=== PATIENT | female | born 1980 | race Caucasian/White ===

== ENCOUNTER 2018-07-03 16:37 | Emergency (ER) | payer OTHER ==
--- NOTE | 2018-07-03 18:11 | EDPHY ---
H & P Time Seen by Provider: 07/03/18 17:39 HPI/ROS: HPI 6 weeks . Vaginal bleeding and cramping. 37-year-old female, , by private vehicle, complains of spotting and lower abdominal cramping since 3:00 p.m. This afternoon. States that she is currently 6 weeks . Denies any other complaints. She states that her bleeding and cramping have now resolved that she is in the emergency department. States that she has not been passing clots. She denies any urinary complaints. ROS: Constitutional: No fever, no chills. No weakness. Eyes: No discharge. No changes in vision. ENT: No sore throat. No nasal congestion or rhinorrhea. Respiratory: No cough. No shortness of breath. Cardiac: No chest pain, no palpitations. Gastrointestinal: No abdominal pain, no vomiting, no diarrhea. Genitourinary: No hematuria. No dysuria or increased frequency with urination. As above. Musculoskeletal: No back pain. No neck pain. No myalgias or arthralgias. Skin: No rashes. Neurological: No headache. No focal weakness or altered sensation. Past medical history: No significant past medical history. Her OBGYN is Dr. Shania Jon. Social history: Nonsmoker. Here with boyfriend. No alcohol. Physical Exam: General Appearance: Alert, no distress. This patient is responding to questions appropriately and in full sentences. This patient appears well- hydrated and well-nourished. Eyes: Pupils equal and round no pallor or injection. No lid edema, erythema or injection. Respiratory: There are no retractions, lungs are clear to auscultation with good air movement bilaterally. Cardiovascular: Regular rate and rhythm. No murmur. Gastrointestinal: Abdomen is soft and nontender, no masses, bowel sounds normal. No focal tenderness at McBurney's point. No Cisneros sign. Neurological: Motor sensory function is grossly intact. Cranial nerves are normal. Gait is normal. Skin: Warm and dry, no rashes. Musculoskeletal: No CVA tenderness on palpation. Extremities are symmetrical. All joints range without pain or impingement. Psychiatric: No agitation. No depression. Database: EKG: Imaging: Pelvic/obstetrical ultrasound: Significant for a 6 week 4 day IUP. She has a very small subchorionic hemorrhage noted. heart rate 124. Ultrasound otherwise unremarkable. Results were discussed with staff radiologist Dr. Дмитрий Cameron. Procedures: Emergency department course: Triage vital signs reviewed. Vital signs are unremarkable. IV was placed. Blood work and Ultrasound to be obtained. 7:00 p.m., the patient was re-evaluated. She is resting comfortably at this time. Repeat abdominal exam she is soft, nontender nondistended. She has not had any further cramping or bleeding. Results of her ultrasound and emergency department workup reviewed with her and her . She feels comfortable going home at this time. I discussed diagnosis of threatened miscarriage. Follow up with her OBGYN, Dr. Shania Jon was discussed with them. Return to emergency department precautions thoroughly reviewed. All of their questions were answered. The patient was discharged home in good condition with her . Differential Diagnosis: The differential diagnosis on this patient includes but is not limited to threatened miscarriage. Ectopic unlikely. This represents a partial list of diagnoses considered. These considerations are based on history, physical exam, past history, reassessment and diagnostic testing. Smoking Status: Never smoked Constitutional: Initial Vital Signs Temperature (C) 37.1 C 07/03/18 16:56 Heart Rate 74 07/03/18 16:56 Respiratory Rate 17 07/03/18 16:56 Blood Pressure 133/87 H 07/03/18 16:56 O2 Sat (%) 97 07/03/18 16:56 O2 Delivery Mode Room Air Allergies/Adverse Reactions: No Known Allergies Allergy (Unverified 07/03/18 16:55) Home Medications: Medication Instructions Recorded Progesterone 07/03/18 Medical Decision Making - Diagnostics Imaging Results: Imaging Impressions Obstetrics Ultrasound 07/03/18 17:40 Impression: 1. 6 week 4 day intrauterine gestation ([facility] February [birth year] 2019). Sliver of subchorionic hemorrhage at the fundus. Results called to Dr. Stephens at 6:45 PM. - Data Points Laboratory Results: Laboratory Results 07/03/18 17:48 07/03/18 17:48 07/03/18 07/03/18 07/03/18 18:09 17:48 17:48 WBC RBC Hgb Hct MCV MCH MCHC RDW Plt Count MPV Neut % (Auto) Lymph % (Auto) [place] % (Auto) Eos % (Auto) Baso % (Auto) Nucleat RBC Rel Count Absolute Neuts (auto) Absolute Lymphs (auto) Absolute Monos (auto) Absolute Eos (auto) Absolute Basos (auto) Absolute Nucleated RBC Immature Gran % Immature Gran # Sodium 137 mEq/L mEq/L (135-145) Potassium 4.1 mEq/L mEq/L (3.3-5.0) Chloride 103 mEq/L mEq/L (97-110) Carbon Dioxide 21 mEq/l L mEq/l (22-31) Anion Gap 13 mEq/L mEq/L (6-14) BUN 11 mg/dL mg/dL (7-23) Creatinine 0.7 mg/dL mg/dL (0.6-1.0) Estimated GFR > 60 Glucose 96 mg/dL mg/dL (70-100) Calcium 9.7 mg/dL mg/dL (8.5-10.4) Beta HCG, Quant 39167.00 mIU/mL H mIU/mL (0.00-4.83) Urine Color YELLOW Urine Appearance CLEAR Urine pH 5.0 (5.0-7.5) Ur Specific [place] 1.011 (1.002-1.030) Urine Protein NEGATIVE (NEGATIVE) Urine Ketones NEGATIVE (NEGATIVE) Urine Blood 2+ H (NEGATIVE) Urine Nitrate NEGATIVE (NEGATIVE) Urine Bilirubin NEGATIVE (NEGATIVE) Urine Urobilinogen NEGATIVE EU EU (0.2-1.0) Ur Leukocyte Esterase NEGATIVE (NEGATIVE) Urine RBC 5-10 /hpf H /hpf (0-3) Urine WBC 1-3 /hpf /hpf (0-3) Ur Epithelial Cells TRACE /lpf /lpf (NONE-1+) Urine Mucus TRACE /lpf /lpf (NONE-1+) Urine Glucose NEGATIVE (NEGATIVE) Patient ABO/Rh A POSITIVE 07/03/18 17:48 WBC 11.24 10^3/uL H 10^3/uL (3.80-9.50) RBC 4.83 10^6/uL 10^6/uL (4.18-5.33) Hgb 12.9 g/dL g/dL (12.6-16.3) Hct 39.0 % % (38.0-47.0) MCV 80.7 fL L fL (81.5-99.8) MCH 26.7 pg L pg (27.9-34.1) MCHC 33.1 g/dL g/dL (32.4-36.7) RDW 13.4 % % (11.5-15.2) Plt Count 271 10^3/uL 10^3/uL (150-400) MPV 10.5 fL fL (8.7-11.7) Neut % (Auto) 75.6 % H % (39.3-74.2) Lymph % (Auto) 16.2 % % (15.0-45.0) [place] % (Auto) 6.5 % % (4.5-13.0) Eos % (Auto) 1.0 % % (0.6-7.6) Baso % (Auto) 0.4 % % (0.3-1.7) Nucleat RBC Rel Count 0.0 % % (0.0-0.2) Absolute Neuts (auto) 8.51 10^3/uL H 10^3/uL (1.70-6.50) Absolute Lymphs (auto) 1.82 10^3/uL 10^3/uL (1.00-3.00) Absolute Monos (auto) 0.73 10^3/uL 10^3/uL (0.30-0.80) Absolute Eos (auto) 0.11 10^3/uL 10^3/uL (0.03-0.40) Absolute Basos (auto) 0.04 10^3/uL 10^3/uL (0.02-0.10) Absolute Nucleated RBC 0.00 10^3/uL 10^3/uL (0-0.01) Immature Gran % 0.3 % % (0.0-1.1) Immature Gran # 0.03 10^3/uL 10^3/uL (0.00-0.10) Sodium Potassium Chloride Carbon Dioxide Anion Gap BUN Creatinine Estimated GFR Glucose Calcium Beta HCG, Quant Urine Color Urine Appearance Urine pH Ur Specific [place] Urine Protein Urine Ketones Urine Blood Urine Nitrate Urine Bilirubin Urine Urobilinogen Ur Leukocyte Esterase Urine RBC Urine WBC Ur Epithelial Cells Urine Mucus Urine Glucose Patient ABO/Rh Departure - Departure Disposition: Home, Routine, Self-Care Clinical Impression: Threatened miscarriage Condition: Good Instructions: Threatened Miscarriage (ED) Additional Instructions: READ AND FOLLOW PROVIDED INSTRUCTIONS. FOLLOW-UP WITH YOUR OBGYN, Dr. Shania Jon, on Friday FOR RE-EVALUATION. RETURN TO THE EMERGENCY DEPARTMENT FOR WORSENING SYMPTOMS, vaginal bleeding, abdominal cramping OR OTHER SERIOUS CONCERNS. Referrals: Shania Jon MD [Medical Doctor] - As per Instructions
[2018-07-03 18:13] LABS: PLATELET COUNT 271 10^3/uL (150-400)
[2018-07-03 19:42] VITALS: BP 129/77
== END 2018-07-03 19:42 | disposition home or self-care (01) ==
DX: O20.0 Threatened abortion (principal); Z3A.01 Less than 8 weeks gestation of pregnancy

== ENCOUNTER → 2018-09-28 | Outpatient (CLI) | payer OTHER | LOC: FIMAGING 09:34 | PROVIDERS: ATTEND Obstetrics & Gynecology | DX: O09.512 Supervision of elderly primigravida, second trimester (principal); Z3A.19 19 weeks gestation of pregnancy ==

== ENCOUNTER 2019-02-11 06:11 | Inpatient (IN) | payer OTHER | END 2019-02-14 14:00 | disposition home or self-care (01) | LOC: FLD 06:11 → FOB 02-12 16:55 ==